=== PATIENT | female | born 1930 | race Caucasian/White ===

== ENCOUNTER 2016-12-09 12:35 | Inpatient (IN) | payer MEDICARE, OTHER ==
[2016-12-09] MEDS ORDERED: Acetaminophen 325 MG Tab PO PRN (14:22)
[2016-12-09] MEDS ORDERED: Bisacodyl 10 MG Supp RECTAL PRN (14:22)
--- NOTE | 2016-12-09 14:54 | PCM.HP ---
H&P History of Present Illness - General Date of Service: 12/09/16 Admit Problem/Dx: Admission Diagnosis/Problem Admission Diagnosis/Problem Acute Cholangitis Acute Pancreatitis Hematoma Deconditioning s/p [place] 11/20 Dementia Hypertension, Essential Source of Information: Family, Old Records, RN, RN Notes Reviewed History Limitations: Reports: No Limitations - History of Present Illness Initial Comments - Free Text/Narative: 86-year-old female with a past medical history significant only for dementia and hypertension presented to [facility] on November 21 with a chief complaint of worsening abdominal pain. The patient was found to have acute cholecystitis with acute pancreatitis. Therefore, the patient underwent a laparoscopic Choley on November 21, 2016. According to previous notes from [place], the patient was basically uneventful. During the surgery the patient was found to have a dilated biliary duct so an intraoperative cholangiogram was performed which was negative for choledocholithiasis. Postoperative labs showed an elevated bilirubin of about 5 which did trend down. The patient was able to be discharged home on November 26, 2016. According to the patient's family, later that day the patient began to have worsening abdominal pain and a fever so the daughter drove the patient to [facility] and [place] for further evaluation. On November 26, 2016 patient was admitted acutely to [facility] in [place]. The patient underwent imaging with a CT scan. The CT scan of the abdomen pelvis showed recent cholecystectomy and also pancreatitis with a region of hypoattenuation along the pancreatic tail. The patient also had a hematoma within the ventral adipose. A HIDA scan was performed which did not show any evidence of bile leak. The MRI of the abdomen was concerning for a developing abscess along the anterior abdominal wall. The MRI also showed inflammatory changes consistent with pancreatitis. Patient was seen by GI who did not feel any GI intervention was necessary. The patient did have a surgery consult November 28, 2016 for the subcutaneous hematoma with question of infection. The patient did have an I&D on November 29 of the hematoma. No evidence of infection was found. The I&D only showed a bloody drainage. The patient was therefore placed on IV antibiotics which were completed yesterday. Overall, the patient did fairly well during her hospital stay at [facility]. The patient was able to complete her antibiotics, and diet was advanced to regular, incision from I&D healing well, and remained continent of bowel and bladder. However the patient continues to require skilled services from physical and occupational therapy due to deconditioning and her dementia. Therefore patient was transferred to [facility] in [place] for continued swing bed services. - Related Data Allergies/Adverse Reactions: Allergies Allergy/AdvReac Type Severity Reaction Status Date / Time No Known Allergies Allergy Verified 12/09/16 10:38 Home Medications: Home Meds Acetaminophen 650 mg PO Q6H PRN 12/09/16 [History] B2/Vit A,C & E/Lut/Zeaxanth/Mn [Icaps] 2 tab PO DAILY 12/09/16 [History] Bisacodyl [Dulcolax] 10 mg RECTAL DAILY PRN 12/09/16 [History] Citalopram [Celexa] 10 mg PO DAILY 12/09/16 [History] Docusate Sodium 100 mg PO DAILY 12/09/16 [History] Donepezil [Aricept] 10 mg PO BEDTIME 12/09/16 [History] Hydrochlorothiazide 12.5 mg PO DAILY 12/09/16 [History] Memantine [Namenda] 10 mg PO DAILY 12/09/16 [History] Timolol Maleate [Timoptic 0.25% Ophth Soln] 1 drop EYEBOTH DAILY 12/09/16 [ History] Travoprost [Travatan Z] 1 drop EYEBOTH BEDTIME 12/09/16 [History] atorvaSTATin [Lipitor] 10 mg PO BEDTIME 12/09/16 [History] oxyCODONE 5 mg PO Q6H PRN 12/09/16 [History] Past Medical History HEENT History: Reports: Glaucoma Cardiovascular History: Reports: Hypertension, Other (See Below) Other Cardiovascular History: CVD Respiratory History: Reports: Sleep Apnea Genitourinary History: Reports: Renal Disease Musculoskeletal History: Reports: Other (See Below) Other Musculoskeletal History: radial styloid fracture Neurological History: Reports: TIA, Other (See Below) Other Neuro History: dementia Psychiatric History: Reports: Dementia, Depression Endocrine/Metabolic History: Reports: Obesity/BMI 30+ - Past Surgical History HEENT Surgical History: Reports: Adenoidectomy, Cataract Surgery, Tonsillectomy GI Surgical History: Reports: Appendectomy, Cholecystectomy Female Surgical History: Reports: Hysterectomy Social & Family History - Family History Family Medical History: Noncontributory - Tobacco Use Smoking Status *Q: Never Smoker - Recreational Drug Use Recreational Drug Use: No H&P Review of Systems - Review of Systems: Review Of Systems: See Below Free Text/Narrative: Patient is a poor historian due to her dementia, however she denies any specific complaints. The patient denies any abdominal pain. Patient denies any overt shortness of breath or chest pain. The patient states that overall she feels pretty good. General: Reports: No Symptoms Pulmonary: Reports: No Symptoms Cardiovascular: Reports: No Symptoms Gastrointestinal: Reports: No Symptoms, Other (some slight abdominal pain with vigorous movements) Skin: Reports: No Symptoms Neurological: Reports: No Symptoms Exam - Exam Exam: See Below - Vital Signs Vital Signs: Last Vital Signs Temp 37.2 C 12/09/16 13:03 Pulse 75 12/09/16 13:03 Resp 16 12/09/16 13:03 BP 150/62 H 12/09/16 13:03 Pulse Ox 99 12/09/16 13:03 Weight: 77.292 kg - Exam General: Alert, Cooperative, Other (Oriented to self and place, but disoriented to time.) Neck: Supple Lungs: Clear to Auscultation, Normal Respiratory Effort Cardiovascular: Regular Rate, Regular Rhythm GI/Abdominal Exam: Normal Bowel Sounds, Soft, Tender (slight tenderness of incision site with deep palpation (superior umbilicus right of midline)) Extremities: Normal Inspection Peripheral Pulses: 2+: Radial (L), Radial (R) Skin: Warm, Dry, Wound (0.5cm horizontal incison superior umbilicus right of midline; incision open and packed with iodoform gauze) Skin Alteration Location (Drawings Not To Scale): 1 - s/p incision and drainage site; area appears to be healing very well; iodoform gauze in place; no drainage; no evidence of infection Neuro Extensive - Mental Status: Alert, Disorientation to Time, Memory Loss- Remote Events, Nl Response to Commands *Q Meaningful Use (ADM) - VTE *Q VTE Criteria *Q: Patient is at risk for falls given her dementia VTE Mechanical Contraindications *Q: At Risk for Falls VTE Pharmacological Contraindications *Q: Risk of Bleeding (Risk of bleeding from incision site) - VTE Risk Assess *Q Each Risk Factor Represents 3 Points: Age 75 Years or Greater Total Score 3 Point Risk Factors: 3 - Stroke *Q Stroke Criteria *Q: - AMI *Q AMI Criteria *Q: - Problem List (1) Acute cholecystitis due to biliary calculus SNOMED Code(s): 79239228628418 ICD Code: K80.00 - CALCULUS OF GALLBLADDER W ACUTE CHOLECYST W/O OBSTRUCTION Status: Acute Priority: Medium Current Visit: Yes Onset Date: ~ Problem Details: Status post cholecystectomy 11/21; we will continue to monitor, eating habits, bowel movements, pain control. (2) Acute pancreatitis SNOMED Code(s): 445406591 ICD Code: K85.90 - ACUTE PANCREATITIS WITHOUT NECROSIS OR INFECTION, UNSP Status: Acute Priority: Medium Current Visit: Yes Onset Date: ~11/21/16 Problem Details: Acute pancreatitis is resolving, however we'll continue to monitor pain levels and activity; no labs are warranted at this time as patient had extensive workup this past week (3) Status post cholecystectomy SNOMED Code(s): 581944532 ICD Code: Z90.49 - ACQUIRED ABSENCE OF OTHER SPECIFIED PARTS OF DIGESTIVE TRACT Status: Acute Priority: Medium Current Visit: Yes Onset Date: ~ Problem Details: Continue to monitor lap sites for any evidence of infection; areas seem to be healing quite nicely (4) Abdominal wall hematoma SNOMED Code(s): 122636702 ICD Code: S30.1XXA - CONTUSION OF ABDOMINAL WALL, INITIAL ENCOUNTER Status : Acute Current Visit: Yes Onset Date: ~11/21/16 Problem Details: Hematoma present after lap Choley on 11/21; area was I&D done on November 29 per surgical services manager at [facility]; area healing very nicely no evidence of infection Qualifiers: Encounter type: sequela Qualified Code(s): S30.1XXS - Contusion of abdominal wall, sequela (5) Status post incision and drainage SNOMED Code(s): 563882477 ICD Code: Z98.890 - OTHER SPECIFIED POSTPROCEDURAL STATES Status: Acute Priority: Medium Current Visit: Yes Onset Date: ~11/29/16 Problem Details : Will continue with twice a day iodoform dressing changes until the incision has healed to the surface; monitor for any signs and symptoms of infection; pain control (6) Physical deconditioning SNOMED Code(s): 78649917779063 ICD Code: R53.81 - OTHER MALAISE Status: Acute Priority: Medium Current Visit: Yes Onset Date: ~11/21/16 Problem Details: Consult physical and occupational therapy (7) Dementia SNOMED Code(s): 96211825 ICD Code: F03.90 - UNSPECIFIED DEMENTIA WITHOUT BEHAVIORAL DISTURBANCE Status: Chronic Priority: Medium Current Visit: Yes Problem Details: We' ll continue patient on current medications without any changes Qualifiers: Dementia type: unspecified type Dementia behavioral disturbance: with behavioral disturbance Qualified Code(s): F03.91 - Unspecified dementia with behavioral disturbance (8) Hypertension SNOMED Code(s): 55962633 ICD Code: I10 - ESSENTIAL (PRIMARY) HYPERTENSION Status: Acute Current Visit: Yes Problem Details: Continue with hydrochlorothiazide Qualifiers: Hypertension type: essential hypertension Qualified Code(s): I10 - Essential (primary) hypertension (9) Obesity (BMI 30.0-34.9) SNOMED Code(s): 337060119 ICD Code: E66.9 - OBESITY, UNSPECIFIED Status: Acute Current Visit: Yes (10) Do not resuscitate Status: Chronic Current Visit: Yes Problem List Initiated/Reviewed/Updated: Yes Orders Last 24hrs: Active Orders 24 hr Category Date Time Status Patient Status [ADT] Routine ADT 12/09/16 14:16 Active Ambulate [RC] 08, Care 12/09/16 14:18 Active Ambulate [RC] PER UNIT ROUTINE Care 12/09/16 14:15 Active Antiembolic Devices [RC] ,20 Care 12/09/16 14:20 Active Height and Weight [RC] .PRN Care 12/09/16 14:17 Active Intake and Output [RC] ,18 Care 12/09/16 14:15 Active May Shower [RC] , Care 12/09/16 14:15 Active Oxygen Therapy [RC] .PRN Care 12/09/16 14:16 Active VTE/DVT Education [RC] .PRN Care 12/09/16 14:16 Active Vital Signs [RC] 06,18 Care 12/09/16 14:16 Active Wound Care [RC] ,20 Care 12/09/16 14:30 Active Consult to Case Management [CONS] Routine Cons 12/09/16 14:15 Active OT Evaluation and Treatment [CONS] Routine Cons 12/09/16 14:15 Active PT Evaluation and Treatment [CONS] Routine Cons 12/09/16 14:15 Active Regular Diet [DIET] Diet 12/09/16 Dinner Active CULTURE MRSA SURVEY [RM] Routine Lab 12/09/16 13:12 Received Acetaminophen [Tylenol] Med 12/09/16 14:22 Ordered 650 mg PO Q6H PRN B2/Vit A,C & E/Lut/Zeaxanth/Mn [Icaps] Med 12/10/16 08:00 Ordered 2 tab PO DAILY Bisacodyl [Dulcolax] Med 12/09/16 14:22 Ordered 10 mg RECTAL DAILY PRN Citalopram [Celexa] Med 12/10/16 08:00 Ordered 10 mg PO DAILY Docusate Sodium [Colace] Med 12/10/16 08:00 Ordered 100 mg PO DAILY Donepezil [Aricept] Med 12/09/16 20:00 Ordered 10 mg PO BEDTIME Hydrochlorothiazide Med 12/10/16 08:00 Ordered 12.5 mg PO DAILY Memantine [Namenda] Med 12/10/16 08:00 Ordered 10 mg PO DAILY Timolol Maleate [Timoptic 0.25% Ophth Soln] Med 12/10/16 08:00 Ordered 1 drop EYEBOTH DAILY Travoprost [Travatan Z] Med 12/09/16 20:00 Ordered 1 drop EYEBOTH BEDTIME atorvaSTATin [Lipitor] Med 12/09/16 20:00 Ordered 10 mg PO BEDTIME Antiembolic Hose [OM.PC] Routine Oth 12/09/16 14:15 Ordered Patient May [OM.PC] Click To Edit Oth 12/09/16 14:15 Ordered VTE Pharmacological Contraindications [AST] Per Unit Oth 12/09/16 14:15 Ordered Routine Resuscitation Status Routine Resus Stat 12/09/16 14:15 Ordered Medication Orders Acetaminophen (Tylenol) 650 mg PO Q6H PRN PRN Reason: Pain Atorvastatin Calcium (Lipitor) 10 mg PO BEDTIME BRYANT Bisacodyl (Dulcolax) 10 mg RECTAL DAILY PRN PRN Reason: Constipation Citalopram Hydrobromide (Celexa) 10 mg PO DAILY BRYANT Docusate Sodium (Colace) 100 mg PO DAILY BRYANT Donepezil HCl (Aricept) 10 mg PO BEDTIME BRYANT Hydrochlorothiazide (Hydrochlorothiazide) 12.5 mg PO DAILY BRYANT Memantine (Namenda) 10 mg PO DAILY BRYANT Non-Formulary Medication (B2/Vit A,C & E/Lut/Zeaxanth/Mn [Icaps]) 2 tab PO DAILY BRYANT Non-Formulary Medication (Timolol Maleate [Timoptic 0.25% Ophth Soln]) 1 drop EYEBOTH DAILY BRYANT Non-Formulary Medication (Travoprost [Travatan Z]) 1 drop EYEBOTH BEDTIME BRYANT Assessment/Plan Comment:: 86-year-old female patient with a past medical history of dementia and hypertension is admitted to the swing bed unit at [facility] for ongoing acute pancreatitis, abdominal wall hematoma status post I&D and generalized deconditioning. The patient will be seen by physical and occupational therapy. We will continue with twice a day iodoform and dressing changes to incision site. No changes with current medications. I will stop the patient's oxycodone as the patient has not required this medication over the past couple of days and they also feel it would worsen her dementia. No labs are warranted at this time. Will discuss plan of care with the patient's daughter and son-in-law as able. The patient is a full no code. No DVT prophylaxis warranted as the patient is ambulating and risk factor for DVT is low. I would anticipate the patient being discharged to a fpc in [facility] [place] when medically stable. I would like the I&D site to be fully healed prior to discharge. The patient will be on a regular diet and we will strongly encourage fluids. The patient will have Tylenol for any pain. We will awaits physical and occasional therapy recommendations as far as further disposition of this patient.
[2016-12-09] MEDS: atorvaSTATin 10 MG Tab PO SCH (20:42)
[2016-12-09] MEDS: Donepezil 10 MG Tab PO SCH (20:42)
[2016-12-10] MEDS: Hydrochlorothiazide 12.5 MG Cap PO SCH (07:57)
[2016-12-10] MEDS: Memantine 10 MG Tab PO SCH (07:57)
[2016-12-10] MEDS: Beta-Carotene (Vitamin A) w/Vitamin C & E plus Minerals Tab PO SCH (07:57)
[2016-12-10] MEDS: Citalopram 10 MG Tab PO SCH (07:57)
[2016-12-10] MEDS: Docusate Sodium 100 MG Cap PO SCH (07:58)
[2016-12-10] MEDS: atorvaSTATin 10 MG Tab PO SCH (19:42)
[2016-12-10] MEDS: Donepezil 10 MG Tab PO SCH (19:42)
[2016-12-11] MEDS: Beta-Carotene (Vitamin A) w/Vitamin C & E plus Minerals Tab PO SCH (09:02)
[2016-12-11] MEDS: Citalopram 10 MG Tab PO SCH (09:03)
[2016-12-11] MEDS: Hydrochlorothiazide 12.5 MG Cap PO SCH (09:03)
[2016-12-11] MEDS: Docusate Sodium 100 MG Cap PO SCH (09:03)
[2016-12-11] MEDS: Memantine 10 MG Tab PO SCH (09:03)
[2016-12-11] MEDS: TIMOLOL MALEATE EYEBOTH SCH (09:38)
[2016-12-11] MEDS: TRAVOPROST EYEBOTH SCH (09:38)
[2016-12-11] MEDS: atorvaSTATin 10 MG Tab PO SCH (20:03)
[2016-12-11] MEDS: Donepezil 10 MG Tab PO SCH (20:03)
[2016-12-12] MEDS: Beta-Carotene (Vitamin A) w/Vitamin C & E plus Minerals Tab PO SCH (08:04)
[2016-12-12] MEDS: Hydrochlorothiazide 12.5 MG Cap PO SCH (08:04)
[2016-12-12] MEDS: Memantine 10 MG Tab PO SCH (08:05)
[2016-12-12] MEDS: Docusate Sodium 100 MG Cap PO SCH (08:05)
[2016-12-12] MEDS: Citalopram 10 MG Tab PO SCH (08:05)
[2016-12-12] MEDS: atorvaSTATin 10 MG Tab PO SCH (19:44)
[2016-12-12] MEDS: Donepezil 10 MG Tab PO SCH (19:44)
[2016-12-13] MEDS: Memantine 10 MG Tab PO SCH (07:47)
[2016-12-13] MEDS: Hydrochlorothiazide 12.5 MG Cap PO SCH (07:47)
[2016-12-13] MEDS: Citalopram 10 MG Tab PO SCH (07:47)
[2016-12-13] MEDS: Beta-Carotene (Vitamin A) w/Vitamin C & E plus Minerals Tab PO SCH (07:47)
[2016-12-13] MEDS: Docusate Sodium 100 MG Cap PO SCH (07:48)
[2016-12-13] MEDS: Donepezil 10 MG Tab PO SCH (20:22)
[2016-12-13] MEDS: atorvaSTATin 10 MG Tab PO SCH (20:22)
[2016-12-14] MEDS: Beta-Carotene (Vitamin A) w/Vitamin C & E plus Minerals Tab PO SCH (07:22)
[2016-12-14] MEDS: Docusate Sodium 100 MG Cap PO SCH (07:22)
[2016-12-14] MEDS: Citalopram 10 MG Tab PO SCH (07:23)
[2016-12-14] MEDS: Memantine 10 MG Tab PO SCH (07:23)
[2016-12-14] MEDS: Hydrochlorothiazide 12.5 MG Cap PO SCH (07:23)
[2016-12-14] MEDS: atorvaSTATin 10 MG Tab PO SCH (19:34)
[2016-12-14] MEDS: Donepezil 10 MG Tab PO SCH (19:34)
[2016-12-15] MEDS: Beta-Carotene (Vitamin A) w/Vitamin C & E plus Minerals Tab PO SCH (09:04)
[2016-12-15] MEDS: Memantine 10 MG Tab PO SCH (09:04)
[2016-12-15] MEDS: Docusate Sodium 100 MG Cap PO SCH (09:04)
[2016-12-15] MEDS: Citalopram 10 MG Tab PO SCH (09:04)
[2016-12-15] MEDS: Hydrochlorothiazide 12.5 MG Cap PO SCH (09:04)
[2016-12-15] MEDS: atorvaSTATin 10 MG Tab PO SCH (20:20)
[2016-12-15] MEDS: Donepezil 10 MG Tab PO SCH (20:20)
[2016-12-16] MEDS ORDERED: Lidocaine 1% with EPINEPHrine 1:100,000 20 ML MDV INFILT ONE (07:42)
--- NOTE | 2016-12-16 07:52 | PCM.PRNOTE ---
- Free Text/Narrative Note: Wound Closure: 1.0cm vertical incision site over the right abdomen was closed with 3, 4-0 Nylon sutures. 3cc of Lidocaine with Epi was locally infiltrated to achieved adequate anesthesia. Area closed without complication. Patient tolerated procedure well. Triple abx ointment applied, area covered with a bandaid.
--- NOTE | 2016-12-16 07:53 | PCM.DCSUM1 ---
Discharge Summary - Hospital Course HPI Initial Comments: 86-year-old female with a past medical history significant only for dementia and hypertension presented to [facility] on November 21 with a chief complaint of worsening abdominal pain. The patient was found to have acute cholecystitis with concurrent acute pancreatitis. Therefore, the patient underwent a laparoscopic Choley on November 21, 2016. According to previous notes from [place], the surgery was basically uneventful. During the surgery the patient was found to have a dilated biliary duct so an intraoperative cholangiogram was performed which was negative for choledocholithiasis. Postoperative labs showed an elevated bilirubin of about 5 which did trend down. The patient was able to be discharged home on November 26, 2016. According to the patient's family, later that day the patient began to have worsening abdominal pain and a fever so the daughter drove the patient to [facility] and [place] for further evaluation. On November 26, 2016 patient was admitted acutely to [facility] in [place]. The patient underwent imaging with a CT scan. The CT scan of the abdomen pelvis showed recent cholecystectomy and also pancreatitis with a region of hypoattenuation along the pancreatic tail. The patient also had a hematoma within the ventral adipose. A HIDA scan was performed which did not show any evidence of bile leak. The MRI of the abdomen was concerning for a developing abscess along the anterior abdominal wall. The MRI also showed inflammatory changes consistent with pancreatitis. Patient was seen by GI who did not feel any GI intervention was necessary. The patient did have a surgery consult November 28, 2016 for the subcutaneous hematoma with question of infection. The patient did have an I&D on November 29 of the hematoma. No evidence of infection was found. The I&D only showed a bloody drainage. The patient was therefore placed on IV antibiotics which were completed yesterday. Overall, the patient did fairly well during her hospital stay at [facility]. The patient was able to complete her antibiotics, and diet was advanced to regular, incision from I&D healing well, and remained continent of bowel and bladder. However the patient continues to require skilled services from physical and occupational therapy due to deconditioning and her dementia. Therefore patient was transferred to [facility] for continued swing bed services. - Discharge Data Discharge Date: 12/16/16 Discharge Disposition: DC/Tfer to [facility] Condition: Good - Discharge Diagnosis/Problem(s) (1) Acute cholecystitis due to biliary calculus SNOMED Code(s): 91008679933950 ICD Code: K80.00 - CALCULUS OF GALLBLADDER W ACUTE CHOLECYST W/O OBSTRUCTION Status: Resolved Priority: Medium Current Visit: Yes Onset Date: ~11/21 Problem Details: Status post cholecystectomy 11/21; we will continue to monitor, eating habits, bowel movements, pain control. (2) Acute pancreatitis SNOMED Code(s): 777711418 ICD Code: K85.90 - ACUTE PANCREATITIS WITHOUT NECROSIS OR INFECTION, UNSP Status: Resolved Priority: Medium Current Visit: Yes Onset Date: ~ Problem Details: Acute pancreatitis is resolving, however we'll continue to monitor pain levels and activity; no labs are warranted at this time as patient had extensive workup this past week Qualifiers: Pancreatitis type: unspecified pancreatitis type Acute pancreatitis complication: unspecified Qualified Code(s): K85.90 - Acute pancreatitis without necrosis or infection, unspecified (3) Status post cholecystectomy SNOMED Code(s): 487439376 ICD Code: Z90.49 - ACQUIRED ABSENCE OF OTHER SPECIFIED PARTS OF DIGESTIVE TRACT Status: Chronic Priority: Medium Current Visit: Yes Onset Date: ~ 11/21/16 Problem Details: Continue to monitor lap sites for any evidence of infection; areas seem to be healing quite nicely (4) Abdominal wall hematoma SNOMED Code(s): 922461815 ICD Code: S30.1XXA - CONTUSION OF ABDOMINAL WALL, INITIAL ENCOUNTER Status : Resolved Current Visit: Yes Onset Date: ~11/21/16 Problem Details: Hematoma present after lap Choley on 11/21; area was I&D done on November 29 per assembler surgical garment at [facility]; area healing very nicely no evidence of infection Qualifiers: Encounter type: sequela Qualified Code(s): S30.1XXS - Contusion of abdominal wall, sequela (5) Status post incision and drainage SNOMED Code(s): 767120809 ICD Code: Z98.890 - OTHER SPECIFIED POSTPROCEDURAL STATES Status: Resolved Priority: Medium Current Visit: Yes Onset Date: ~11/29/16 Problem Details: Will continue with twice a day iodoform dressing changes until the incision has healed to the surface; monitor for any signs and symptoms of infection; pain control (6) Physical deconditioning SNOMED Code(s): 15054237544931 ICD Code: R53.81 - OTHER MALAISE Status: Chronic Priority: Medium Current Visit: Yes Onset Date: ~11/21/16 Problem Details: Consult physical and occupational therapy (7) Dementia SNOMED Code(s): 86626295 ICD Code: F03.90 - UNSPECIFIED DEMENTIA WITHOUT BEHAVIORAL DISTURBANCE Status: Chronic Priority: Medium Current Visit: Yes Problem Details: We' ll continue patient on current medications without any changes Qualifiers: Dementia type: unspecified type Dementia behavioral disturbance: with behavioral disturbance Qualified Code(s): F03.91 - Unspecified dementia with behavioral disturbance (8) Hypertension SNOMED Code(s): 93476362 ICD Code: I10 - ESSENTIAL (PRIMARY) HYPERTENSION Status: Chronic Current Visit: Yes Problem Details: Continue with hydrochlorothiazide Qualifiers: Hypertension type: essential hypertension Qualified Code(s): I10 - Essential (primary) hypertension (9) Obesity (BMI 30.0-34.9) SNOMED Code(s): 797539145 ICD Code: E66.9 - OBESITY, UNSPECIFIED Status: Chronic Current Visit: Yes (10) Do not resuscitate Status: Chronic Current Visit: Yes - Patient Summary/Data Operative Procedure(s) Performed: Closure of I & D site on right abdomen completed 12/16/2016 Complications: None Consults: Consultations 12/09/16 14:15 Consult to Case Management [CONS] Routine OT Evaluation and Treatment [CONS] Routine PT Evaluation and Treatment [CONS] Routine Labs Pending at D/C: None Recommended Follow-up Testing/Procedures: I & D site recheck with possible suture removal in 10 days with PCP Planned Operative Procedure(s) after DC: None Hospital Course: Overall, patient progressed well with physical and occupation therapies. Patient is able to perform ADL's and be independent with ambulation. Abdominal incision site closed with suture on day of discharge. Will need to see PCP in 10 days for recheck. No issues with bowel or bladder. Tolerated diet without problems. Patient remained hemodynamically stable without and fevers. - Patient Instructions Diet: Heart Healthy Diet Activity: Rest and Relax Today Driving: Do Not Drive Showering/Bathing: May Shower Wound/Incision Care: Keep Operative Site/Wound Site Clean and Dry, Change Dressing Daily Notify Provider of: Fever, Increased Pain, Swelling and Redness, Drainage, Nausea and/or Vomiting - Discharge Plan Home Medications: Home Meds Acetaminophen 650 mg PO Q6H PRN 12/09/16 [History] B2/Vit A,C & E/Lut/Zeaxanth/Mn [Icaps] 2 tab PO DAILY 12/09/16 [History] Bisacodyl [Dulcolax] 10 mg RECTAL DAILY PRN 12/09/16 [History] Citalopram [Celexa] 10 mg PO DAILY 12/09/16 [History] Docusate Sodium 100 mg PO DAILY 12/09/16 [History] Donepezil [Aricept] 10 mg PO BEDTIME 12/09/16 [History] Hydrochlorothiazide 12.5 mg PO DAILY 12/09/16 [History] Memantine [Namenda] 10 mg PO DAILY 12/09/16 [History] Timolol Maleate [Timoptic 0.25% Ophth Soln] 1 drop EYEBOTH DAILY 12/09/16 [ History] Travoprost [Travatan Z] 1 drop EYEBOTH BEDTIME 12/09/16 [History] atorvaSTATin [Lipitor] 10 mg PO BEDTIME 12/09/16 [History] Patient Handouts: Sutured Wound Care Referrals: Bruce Sampson MD [Primary Care Provider] - - Discharge Summary/Plan Comment DC Time >30 min.: Yes Discharge Summary/Plan Comment: Patient will be discharge to the [facility] in [facility] today. Patient will go by POV with her daughter. Patient needs to set up an appointment with her PCP in 10 days for a recheck of I & D site with possible suture removal. - General Info Date of Service: 12/16/16 Admission Dx/Problem (Free Text: Admission Diagnosis/Problem Admission Diagnosis/Problem Acute Cholangitis Acute Pancreatitis Hematoma Deconditioning s/p Aylin 11/20 Dementia Hypertension, Essential Subjective Update: Patient offers no specific complaints on discharge. She states she is feeling fine and ready to go home. Functional Status: Reports: Pain Controlled, Tolerating Diet, Ambulating, Urinating Numeric/FACES Score: 0 - Review of Systems General: Denies: Fever, Weakness Pulmonary: Denies: Shortness of Breath, Sputum Cardiovascular: Denies: Chest Pain, Palpitations Gastrointestinal: Denies: Abdominal Pain, Nausea, Vomiting Skin: Reports: No Symptoms Neurological: Reports: No Symptoms. Denies: Dizziness, Headache - Patient Data Vitals - Most Recent: Last Vital Signs Temp 36.8 C 12/16/16 05:46 Pulse 92 12/16/16 05:46 Resp 18 12/16/16 05:46 BP 142/91 H 12/16/16 05:46 Pulse Ox 94 L 12/16/16 05:46 Weight - Most Recent: 77.292 kg I&O - Last 24 hours: Intake & Output 12/15/16 12/16/16 12/16/16 22:59 06:59 14:59 Intake Total 180 Balance 180 Med Orders - Current: Current Medications Acetaminophen (Tylenol) 650 mg PO Q6H PRN PRN Reason: Pain Atorvastatin Calcium (Lipitor) 10 mg PO BEDTIME [facility] Last Admin: 12/15/16 20:20 Dose: 10 mg Bisacodyl (Dulcolax) 10 mg RECTAL DAILY PRN PRN Reason: Constipation Citalopram Hydrobromide (Celexa) 10 mg PO DAILY [facility] Last Admin: 12/15/16 09:04 Dose: 10 mg Docusate Sodium (Colace) 100 mg PO DAILY [facility] Last Admin: 12/15/16 09:04 Dose: 100 mg Donepezil HCl (Aricept) 10 mg PO BEDTIME [facility] Last Admin: 12/15/16 20:20 Dose: 10 mg Hydrochlorothiazide (Hydrochlorothiazide) 12.5 mg PO DAILY [facility] Last Admin: 12/15/16 09:04 Dose: 12.5 mg Memantine (Namenda) 10 mg PO DAILY [facility] Last Admin: 12/15/16 09:04 Dose: 10 mg Multivitamins/Minerals (Prosight) 2 tab PO DAILY [facility] Last Admin: 12/15/16 09:04 Dose: 2 tab Discontinued Medications Lidocaine/Epinephrine (Xylocaine 1% With Epinephrine 1:100,000) 20 ml INFILT ONETIME ONE Stop: 12/16/16 07:43 Timolol Maleate [ Timoptic 0.25% Ophth Soln] *Ptom* 1 drop EYEBOTH DAILY [facility] Last Admin: 12/11/16 09:38 Dose: Not Given Travoprost [Travatan (Z] *Ptom*) 1 drop EYEBOTH BEDTIME [facility] Last Admin: 12/11/16 09:38 Dose: Not Given - Exam General: Reports: Alert, Oriented HEENT: Reports: Pupils Equal, Pupils Reactive Lungs: Reports: Clear to Auscultation, Normal Respiratory Effort Cardiovascular: Reports: Regular Rate, Regular Rhythm, No Murmurs GI/Abdominal Exam: Normal Bowel Sounds, Soft, Non-Tender, Other (1.0cm vertical laceration to the right abdomen; closed with sutures; area without evidence of infection; non-tender; healing well) Skin: Reports: Warm, Dry, Intact Wound/Incisions: Reports: Healing Well, Dressing Dry and Intact Neurological: Reports: No New Focal Deficit *Q Meaningful Use (DIS) - VTE *Q VTE Criteria *Q: VTE Mechanical Contraindications *Q: At Risk for Falls VTE Pharmacological Contraindications *Q: Risk of Bleeding (Risk of bleeding from incision site) - Stroke *Q Stroke Criteria *Q: - AMI *Q AMI Criteria *Q:
[2016-12-16] MEDS: Hydrochlorothiazide 12.5 MG Cap PO SCH (08:11)
[2016-12-16] MEDS: Beta-Carotene (Vitamin A) w/Vitamin C & E plus Minerals Tab PO SCH (08:12)
[2016-12-16] MEDS: Memantine 10 MG Tab PO SCH (08:12)
[2016-12-16] MEDS: Docusate Sodium 100 MG Cap PO SCH (08:12)
[2016-12-16] MEDS: Citalopram 10 MG Tab PO SCH (08:12)
== END 2016-12-16 16:50 | DRG 439 ==
LOC: VM.MS 12:46
PROVIDERS: ADMIT Nurse Practitioner Family; ATTEND Nurse Practitioner Family
DX: K85.90 Acute pancreatitis without necrosis or infection, unspecified (principal); K83.0 Cholangitis; Z90.49 Acquired absence of other specified parts of digestive tract; F03.90 Unspecified dementia, unspecified severity, without behavioral disturbance, psychotic disturbance, mood disturbance, and anxiety; R53.81 Other malaise; I11.9 Hypertensive heart disease without heart failure; Z86.73 Personal history of transient ischemic attack (TIA), and cerebral infarction without residual deficits; F32.9 Major depressive disorder, single episode, unspecified; E66.9 Obesity, unspecified; N18.9 Chronic kidney disease, unspecified; G47.30 Sleep apnea, unspecified; Z79.899 Other long term (current) drug therapy; Z66 Do not resuscitate; Z68.33 Body mass index [BMI] 33.0-33.9, adult
CPT/HCPCS: 97116-GP; 97161-GP; 97165-GO; 97535-GO; A9270-GY